=== PATIENT | female | born 1950 | race Caucasian/White ===

== ENCOUNTER 2016-10-03 12:23 | Emergency (ER) | payer MEDICARE ==
[2016-10-03] MEDS ORDERED: NS 0.9% 1000 ML* 1,000 ML IV ONE (12:40)
[2016-10-03] MEDS ORDERED: Morphine INJ* 4 MG/ML 1 ML CARPUJECT IV ONE (12:42)
[2016-10-03] MEDS ORDERED: Ondansetron INJ* 2 MG/ML VIAL IV ONE (12:42)
[2016-10-03 12:51] LABS: Hematocrit 39 % (35-47); Hemoglobin 12.7 g/dl (12.0-16.0); Mean Corpuscular HGB Conc 33 g/dl (31-36); Mean Corpuscular Hemoglobin 28 pg (27-31); Mean Corpuscular Volume 86 fL (80-97); Mean Platelet Volume 7 um3 (7.4-10.4); Red Blood Count 4.47 10^6/ul (4.0-5.4); Red Cell Distribution Width 14 % (10.5-15); White Blood Count 14.2 10^3/ul (3.5-10.8)
[2016-10-03 13:05] LABS: Albumin 3.8 g/dL (3.2-5.2); BUN/Creatinine Ratio 15.8 (8-20); C Reactive Protein 7.58 mg/L (< 5.00); Calcium 9.4 mg/dL (8.6-10.3); EGFR African American 75.7 (>60); EGFR Non-African American 58.9 (>60); Globulin 2.6 g/dL (2-4); Total Bilirubin 0.6 mg/dL (0.2-1.0); Total Protein 6.4 g/dL (6.4-8.9)
[2016-10-03 13:22] LABS: Urine Bacteria Absent (Absent); Urine Bilirubin Negative (Negative); Urine Glucose Negative (Negative); Urine Nitrite Negative (Negative)
[2016-10-03] MEDS ORDERED: Iodixanol* (CONTRAST) 320 MG/ML 100 ML SDV IV ONE (15:56)
--- NOTE | 2016-10-03 16:36 | RAD ---
INDICATION: RIGHT lower quadrant pain. Nausea and vomiting. COMPARISON: None. TECHNIQUE: Multidetector CT images were obtained from the lung bases to the ischial tuberosities with 100 mL Visipaque 320 IV and oral contrast. Multiplanar reformation. REPORT: Unremarkable visualized inferior thorax. Decreased density of the liver consistent with fatty infiltration. No focal hepatic lesions or biliary dilatation evident. Unremarkable gallbladder, pancreas, spleen. Negative for CT abnormality of the upper GI, small bowel, or diminutive medially extending appendix. Largely decompressed colon. Mild diverticulosis of the sigmoid colon without findings of diverticulitis. Trace fluid in Morison's pouch which appears to represent direct extension from mild generalized RIGHT perinephric fluid. Negative for free air or hernias. Normal RIGHT adrenal gland. 0.9 cm LEFT adrenal nodule while low suspicion based on small size but not specific for a lipid rich adenoma based on density measurement which is limited by presence of IV contrast. Mildly delayed RIGHT nephrogram and pyelogram. Moderate RIGHT hydroureteronephrosis. Suggestion of small bilateral ureterovesicular junction stones measuring up to 3 mm on the RIGHT and 4 mm on the LEFT. Negative for LEFT hydronephrosis. Unremarkable LEFT ureter. Aside from the subtle UVJ stones the largely decompressed urinary bladder is unremarkable. Pessary in place in the vagina. Small anteverted uterus. Unremarkable RIGHT adnexal region. Mildly prominent 3.5 x 2.7 x 3.6 cm LEFT ovary with heterogeneous density. Negative for lymphadenopathy. Mild atherosclerotic plaque of normal diameter abdominal aorta and iliac arteries. Physiologic distention of the IVC. Polyarticular degenerative arthropathy. Small intraosseous lipoma at the anterior femoral head neck junction of the RIGHT femur. No suspicious focal osseous lesions. IMPRESSION: 1. RIGHT obstructive uropathy with delayed nephrogram and pyelogram, moderate hydroureteronephrosis, and small volume of perinephric fluid is traced to a subtle 3 mm ureterovesicular junction stone. 2. A 4 mm LEFT ureterovesicular junction stone is also noted however there is no LEFT hydronephrosis. 3. Fatty position of the liver. 4. Mild colonic diverticulosis without findings of diverticulitis. 5. Follow-up pelvic ultrasound warranted for further assessment of the mildly enlarged heterogeneous density LEFT ovary. 6. Low suspicion subcentimeter LEFT adrenal nodule for which reassessment with noncontrast CT in 6 months time is suggested both to further characterize the lesion without IV contrast and to assess for interval growth.
[2016-10-03] MEDS ORDERED: Ketorolac INJ* 30 MG/ML 1 ML VIAL IV PUSH ONE (16:52)
--- NOTE | 2016-10-03 17:11 | ED ---
Charan Rivera Rebecca, scribed for Tong Hdz MD on 10/03/16 at 1242 . Abdominal Pain/Female - HPI Summary HPI Summary: Pt is a 66 y/o F who presents to ED c/o abd pain. Pain began suddenly at 0900 this morning and has been intermittent since onset. Pain is in the RLQ with radiation to the groin. Pain is currently ranked 7/10 and characterized as sharp. Sx aggravated and alleviated by nothing. Additionally c/o N/V/D and malodorous and dark urine. Denies dysuria. - History of Current Complaint Chief Complaint: EDAbdPain Stated Complaint: ABD PAIN Time Seen by Provider: 10/03/16 12:36 Hx Obtained From: Patient Onset/Duration: Sudden Onset, Lasting Hours, Still Present Timing: Intermittent Episode Lasting Severity Initially: Moderate Severity Currently: Moderate Pain Intensity: 7 Pain Scale Used: 0-10 Numeric Location: Discrete At: RLQ Radiates: Yes Radiates to: Inguinal Character: Sharp Aggravating Factor(s): Nothing Alleviating Factor(s): Nothing Associated Signs and Symptoms: Positive: Urinary Symptoms - Malodorous and dark urine; Denies dysuria, Nausea, Vomiting, Diarrhea Allergies/Adverse Reactions: Allergies Allergy/AdvReac Type Severity Reaction Status Date / Time Penicillins Allergy Rash Verified 03/18/14 19:48 Sulfa Antibiotics Allergy Unknown Verified 03/18/14 19:46 Reaction Details Epinephrine AdvReac See Comment Verified 03/18/14 19:48 latex Allergy Difficulty Uncoded 03/18/14 19:47 Breathing PMH/Surg Hx/FS Hx/Imm Hx Endocrine/Hematology History: Denies: Hx Diabetes Respiratory History: Reports: Hx Asthma, Hx Chronic Bronchitis - Cancer History Hx Chemotherapy: No Hx Radiation Therapy: No - Surgical History Surgery Procedure, Year, and Place: LEEP (pessary removed); D&C Infectious Disease History: No Infectious Disease History: Reports: Hx Shingles Denies: History Other Infectious Disease, Traveled Outside the [place] in Last 30 Days - Family History Known Family History: Positive: Diabetes, Other - Lung CA; Alcohol abuse - Social History Alcohol Use: Rare Substance Use Type: Reports: None Smoking Status (MU): Never Smoked Tobacco Review of Systems Positive: Abdominal Pain - RLQ into groin, Vomiting, Diarrhea, Nausea Positive: other - Malodorous and dark urine. Negative: dysuria All Other Systems Reviewed And Are Negative: Yes Physical Exam - Summary Physical Exam Summary: VITAL SIGNS: Reviewed. GENERAL: Patient is a well developed and nourished female who is lying comfortable in the stretcher. Patient is not in any acute respiratory distress. HEAD AND FACE: Normocephalic and atraumatic. EYES: PERRLA, EOMI x 2, No injected conjunctiva. EARS: Hearing grossly intact. Ear canals and tympanic membranes are WNL. MOUTH: Oropharynx within normal limits. NECK: Supple, trachea is midline, no adenopathy, no JVD. CHEST: Symmetric, no tenderness at palpation LUNGS: Clear to auscultation bilaterally. No wheezing or crackles. CVS: RRR,, S1 and S2 present, no murmurs or gallops appreciated. ABDOMEN: Soft, positive RLQ tenderness. No signs of distention. Positive bowel sounds. No rebound no guarding, and no masses palpated. No abdominal bruit or pulsations. EXTREMITIES: FROM in all major joints, no edema, no cyanosis or clubbing. NEURO: Alert and oriented x 3. No acute neurological deficits. Speech is normal. SKIN: Dry and warm Triage Information Reviewed: Yes Vital Signs On Initial Exam: Initial Vitals Temp Pulse Resp BP Pulse Ox 98.9 F 69 18 117/76 97 10/03/16 12:32 10/03/16 12:32 10/03/16 12:32 10/03/16 12:32 10/03/16 12:32 Vital Signs Reviewed: Yes Diagnostics - Vital Signs Vital Signs Temp Pulse Resp BP Pulse Ox 10/03/16 12:32 98.9 F 69 18 117/76 97 - Laboratory Result Diagrams: 10/03/16 12:30 10/03/16 12:30 Lab Statement: Any lab studies that have been ordered have been reviewed, and results considered in the medical decision making process. - CT Abd/Pel CT CT Interpretation Completed By: Radiologist Re-Evaluation - Re-Evaluation First Eval Re-Evaluation Time: 16:53 Change: Improved Comment: Pt is feeling significantly better. Abdominal Pain Fem Course/Dx - Course Course Of Treatment: 66 y/o F presents to ED with a CC of RLQ pain with radiation to the pelvic area. She reports sx started today and worsened this afternoon. Denies any dysuria and positive urinary frequency. Denies any fevers or chills. Denies diarrhea and constipation. Blood work within normal limits except WBC of 14.2. Urinalysis shows no UTI. Abd/Pel CT shows a right obstructed uropathy with a 3 mm UVJ stone. Also a 4 mm left UVJ stone without hydronephrosis. The rest of the report as above. In the ER course pt was given IV lfuids, 1 dose morphine and toradol and sx resolved. The pt stayed in the ED for a couple hours and the pt continues to be asymptomatic. She will be d/c to home with instructions to follow up with her PCP and urology. Hemodynamically stable and Axox3. I discussed all my findings and test results with the patient. Patient understands and agrees. Patient was instructed to return to the emergency room immediately if any of the symptoms return or worsens. Patient understands and agrees. Plan of care was discussed with the patient and patient understands and agrees with the plan of care. All questions were answered at patient satisfaction. There were no further complaints or concerns. Patient was instructed to follow up with primary care physician within 3 to 5 days. Patient is hemodynamically stable. Patient is alert and oriented x 3. No acute neurological deficits. - Diagnoses Provider Diagnoses: Kidney stone Discharge - Discharge Plan Condition: Stable Disposition: HOME Prescriptions: oxyCODONE/Acetamin 5/325 MG* [Percocet 5/325 TAB*] 1 tab PO Q6H PRN #10 tab MDD max 4 tabs /day PRN Reason: Pain Patient Education Materials: Kidney Stones (ED) Referrals: Charissa Harrison MD [Primary Care Provider] - 3 Days Angel Pantoja MD [Medical Doctor] - 3 Days (Follow up with Dr. Pantoja, urologist , in 3 days. ) Additional Instructions: Return to ED for any returning or worsening symptoms. The documentation as recorded by the Charan whitfield Rebecca accurately reflects the service I personally performed and the decisions made by me, Tong Hdz MD.
[2016-10-03 17:28] VITALS: BP 104/60
== END 2016-10-03 17:23 | disposition home or self-care (01) ==
LOC: ED 12:23
DX: N20.0 Calculus of kidney (principal); R10.31 Right lower quadrant pain; R11.2 Nausea with vomiting, unspecified; R19.7 Diarrhea, unspecified
CPT/HCPCS: 36415; 74177; 80053; 81003; 81015; 82150; 83690; 85025; 86140; 96374; 96375; 99283; J1885; J2270; J2405; Q9967